=== PATIENT | female | born 1985 | race Caucasian/White ===

== ENCOUNTER → 2019-12-28 07:50 | Outpatient (BNVA) | payer MEDICAID, SELFPAY | PROVIDERS: PCP Family Medicine; Visit Provider Nurse Practitioner Psychiatric/Mental Health | DX: F90.2 Attention-deficit hyperactivity disorder, combined type (principal); F41.1 Generalized anxiety disorder; F33.41 Major depressive disorder, recurrent, in partial remission | CPT/HCPCS: 99212 ==

== ENCOUNTER → 2020-03-28 08:14 | Outpatient (BNVA) | payer MEDICAID, SELFPAY | PROVIDERS: PCP Family Medicine; Visit Provider Nurse Practitioner Psychiatric/Mental Health | DX: F90.2 Attention-deficit hyperactivity disorder, combined type (principal); F41.1 Generalized anxiety disorder; F33.42 Major depressive disorder, recurrent, in full remission | CPT/HCPCS: 99212 ==

== ENCOUNTER → 2020-04-05 13:36 | Outpatient (BNVA) | payer MEDICAID, SELFPAY | PROVIDERS: PCP Family Medicine; Visit Provider Nurse Practitioner Family | DX: Z11.59 Encounter for screening for other viral diseases (principal) | CPT/HCPCS: 87635 ==

== ENCOUNTER → 2020-06-20 08:10 | Outpatient (BNVA) | payer MEDICAID, SELFPAY | PROVIDERS: PCP Family Medicine; Visit Provider Nurse Practitioner Psychiatric/Mental Health | DX: F41.1 Generalized anxiety disorder (principal); F90.2 Attention-deficit hyperactivity disorder, combined type; F33.41 Major depressive disorder, recurrent, in partial remission | CPT/HCPCS: 99212 ==

== ENCOUNTER → 2020-08-17 08:42 | Outpatient (BNVA) | payer MEDICAID, SELFPAY | PROVIDERS: PCP Family Medicine; Visit Provider Nurse Practitioner Psychiatric/Mental Health | DX: F33.41 Major depressive disorder, recurrent, in partial remission (principal); F41.1 Generalized anxiety disorder; F90.2 Attention-deficit hyperactivity disorder, combined type | CPT/HCPCS: 99212 ==

== ENCOUNTER → 2020-11-20 07:39 | Outpatient (BNVA) | payer MEDICAID, SELFPAY | PROVIDERS: Visit Provider Nurse Practitioner Psychiatric/Mental Health | DX: F33.41 Major depressive disorder, recurrent, in partial remission (principal); F41.1 Generalized anxiety disorder; F90.2 Attention-deficit hyperactivity disorder, combined type | CPT/HCPCS: 99213 ==

== ENCOUNTER → 2021-01-03 16:00 | Outpatient (BNVA) | payer OTHER, MEDICAID, SELFPAY | PROVIDERS: Visit Provider Obstetrics & Gynecology | DX: R63.5 Abnormal weight gain (principal) | CPT/HCPCS: 84443 ==

== ENCOUNTER → 2021-01-22 10:29 | Outpatient (BNVA) | payer OTHER, MEDICAID, SELFPAY | PROVIDERS: Visit Provider Nurse Practitioner | DX: Z20.822 Contact with and (suspected) exposure to COVID-19 (principal) | CPT/HCPCS: 87635 ==

== ENCOUNTER → 2021-02-15 12:06 | Outpatient (BNVA) | payer OTHER, MEDICAID, SELFPAY | PROVIDERS: Visit Provider Nurse Practitioner Psychiatric/Mental Health | DX: F41.1 Generalized anxiety disorder (principal); F90.2 Attention-deficit hyperactivity disorder, combined type | CPT/HCPCS: 99213 ==

== ENCOUNTER → 2021-05-15 14:55 | Outpatient (BNVA) | payer OTHER, SELFPAY | PROVIDERS: Visit Provider Obstetrics & Gynecology | DX: R39.9 Unspecified symptoms and signs involving the genitourinary system (principal) | CPT/HCPCS: 81000 ==

== ENCOUNTER → 2021-08-15 09:01 | Outpatient (BNVA) | payer OTHER, SELFPAY | PROVIDERS: Visit Provider Obstetrics & Gynecology | DX: Z00.00 Encounter for general adult medical examination without abnormal findings (principal); E66.9 Obesity, unspecified | CPT/HCPCS: 80061; 82533; 82672 ==

== ENCOUNTER → 2021-11-09 14:08 | Outpatient (BNVA) | payer OTHER, SELFPAY | PROVIDERS: PCP Family Medicine; Visit Provider Family Medicine | DX: R53.83 Other fatigue (principal) | CPT/HCPCS: 80053; 84443; 85025 ==

== ENCOUNTER → 2021-11-15 08:44 | Outpatient (BNVA) | payer OTHER, SELFPAY | PROVIDERS: PCP Family Medicine; Visit Provider Family Medicine | DX: Z01.89 Encounter for other specified special examinations (principal); R53.83 Other fatigue | CPT/HCPCS: 83036; 85025 ==

== ENCOUNTER 2021-12-17 07:05 | Emergency (ER) | payer OTHER, MEDICAID, SELFPAY ==
--- NOTE | 2021-12-17 07:10 | W.ED.CHESTPA ---
HPI - Chest Pain General: Chief Complaint: Chest Pain Stated Complaint: chest pain/tightness in muscles Time Seen by Provider: 12/17/21 07:10 Source: patient Mode of arrival: ambulatory Limitations: no limitations History of Present Illness: 36-year-old female presents emergency room complaining of chest pain and discomfort describes as a tightness in the epigastric area radiating into the left lower chest and left upper quadrant. She is tachypneic on arrival here appears to be hyperventilating. She states her chest discomfort is worse with deep inspiration. She related is being associated with reflux disease she is taken doxylamine for abdominal cramping. She denies dysuria urgency or frequency no hematemesis coffee-ground emesis. She has had a previous hysterectomy. MD complaint: chest pain Onset (ago): day(s) Timing of current episode: episodic Prior episodes: Yes Onset: during rest Pain location: left chest and epigastric Severity: moderate Quality: sharp Relieving factors: rest Exacerbating factors: inspiration Associated symptoms: Reports abdominal pain, dyspnea and nausea; Deny diaphoresis, fever(s), leg edema, palpitations, sense of impending doom, syncope or vomiting Treatment prior to arrival: none Review of Systems Const: Denies: fever(s) or diaphoresis ENMT: Denies: throat pain, ear or mastoid pain, nasal discharge or nasal congestion Card: Denies: palpitations or syncope Resp: Reports: dyspnea GI: Reports: abdominal pain and nausea; Denies: vomiting : Denies: flank pain, difficulty voiding, dysuria, urinary frequency or urinary urgency Skin/Breast: Denies: rash or pruritus PFSH ED PFSH: Medical History ADHD (attention deficit hyperactivity disorder), combined type Diagnosed at the age of 16 and is on medication. She follows up with [facility]. No pertinent past medical history Denies diabetes, asthma, hypertension, seizures, DVT/PE PCP: None Surgical History S/P dilation and curettage Done 2008 for miscarriage. S/P hysterectomy March 2020--laparoscopic-assisted vaginal hysterectomy with bilateral salpingo-oophorectomy performed by Dr. Meza and [facility] for recurrent cervical dysplasia/endometriosis. --- Operative report reviewed and scanned into chart. Pathology showed [id number]-CHARLES-1 without high-grade dysplasia with margins free of dysplasia, proliferative endometrium without atypia hyperplasia or malignancy, benign myometrium serosa and bilateral ovaries. S/P laparoscopy X 3 (2009, 2011, 2013) 2009--Performed in [place]. Diagnosed with endometriosis at time of surgery Status post LEEP (loop electrosurgical excision procedure) of cervix States that she has had 2 LEEP procedures for abnormal Pap smear. States the time of hysterectomy there was no cancer or precancer Status post tubal ligation 2017-2 months laparoscopic tubal removal for sterilization Family History Grandfather Stroke paternal Mother Breast cancer Diagnosed in her late 40s Grandmother Breast cancer maternal, diagnosed in her 50s paternal, dianosed in her 60s Hypertension paternal Hyperlipidemia paternal Grandfather Colon cancer maternal, diagnosed in his 40s Family/Other Diabetes cousin Heart disease maternal uncle Denies family history of Ovarian cancer Uterine cancer Thyroid condition Physical Exam Const: GENERAL APPEARANCE: cooperative and comfortable ORIENTATION/CONSCIOUSNESS: Yes awake, Yes oriented to person, Yes oriented to place and Yes oriented to time HENMT: COMMON NORMALS: normocephalic, atraumatic and hearing grossly normal bilaterally HEAD & SCALP: normocephalic and atraumatic Neck/C-Spine: COMMON NORMALS: no JVD Resp: COMMON NORMALS: normal respiratory effort, No retractions, No use of accessory muscles and clear to auscultation bilaterally AUSCULTATION: clear to auscultation bilaterally Cardio: COMMON NORMALS: no JVD, regular rate, regular rhythm and No murmurs present (Cardio) RATE: regular rate RHYTHM: regular rhythm GI: COMMON NORMALS: No hepatosplenomegaly present AUSCULTATION: Yes normoactive bowel sounds PALPATION: Yes Tenderness to palpation present (GI) (Epigastric) Details: LUQ, No Guarding due to palpation present (GI) and Yes No hepatosplenomegaly present Extremity: COMMON NORMALS: normal to inspection, capillary refill normal, no clubbing, cyanosis or edema, no calf tenderness and no pedal edema Neuro: SENSORIUM/ORIENTATION: Yes oriented to person, Yes oriented to place and Yes oriented to time Skin: COMMON NORMALS: no rashes or lesions noted GENERAL SKIN EXAM: no rashes or lesions noted Course Vital Signs: Vital signs: Vital Signs Temperature 97.9 F 12/17/21 07:13 Pulse Rate 105 H 12/17/21 10:30 Respiratory Rate 20 H 12/17/21 10:30 Blood Pressure 107/66 12/17/21 10:30 Pulse Oximetry 95 12/17/21 10:30 MDM - Chest Pain Medical Decision Making CT of the chest and CT abdomen are negative. Patient was hyperventilating on arrival here most of her pain is worse with deep inspiration there is no evidence of pneumonia or any other pathology with known lung. Treat for pleuritic chest pain. Add been about to go and discussed the labs and findings with the patient and received a call regarding a critical test result with another patient. The discharge had already been printed unfortunately before I had the opportunity to go back and see the patient the nursing staff had discharged the patient they were not aware that I had not talked to her. I will have the charge nurse call her to make sure she does not have any questions. Medical Records I reviewed the patient's medical records. Lab Data I reviewed the patient's lab results. : 12/17/21 07:38 12/17/21 07:38 Radiology Impressions Chest X-Ray 12/17/21 07:11 IMPRESSION: No acute chest abnormality. Abdomen/Pelvis CT 12/17/21 07:34 IMPRESSION: 1. Mild diffuse fatty infiltration liver. 2. Normal renal parenchymal enhancement. No hydronephrosis. 3. No free fluid in the abdomen or pelvis. 4. No evidence of high-grade small or large bowel obstruction. 5. Normal appendix Chest CTA 12/17/21 08:59 IMPRESSION: 1. Proximal main pulmonary arteries are normal. Normal segmental and subsegmental pulmonary arteries. No evidence of pulmonary embolus. 2. No acute pulmonary infiltrates. No focal pneumonia or pleural fluid. 3. No mediastinal or hilar lymphadenopathy. 4. No other significant findings. Laboratory Results WBC 5.6 10^3/uL (4.0-10.0) 12/17/21 07:38 RBC 4.17 10^6/uL (4.1-5.3) 12/17/21 07:38 Hgb 13.2 g/dL (11.5-15.3) 12/17/21 07:38 Hct 38.8 % (37.0-47.0) 12/17/21 07:38 MCV 93.0 fl (81-99) 12/17/21 07:38 MCH 31.7 pg (28.0-34.0) 12/17/21 07:38 MCHC 34.0 g/dL (30.0-36.0) 12/17/21 07:38 RDW 12.7 % (12.1-15.1) 12/17/21 07:38 Plt Count 190 10^3/cmm (130-400) 12/17/21 07:38 MPV 9.5 fL (7.4-10.4) 12/17/21 07:38 Neut % (Auto) 75.6 % 12/17/21 07:38 Lymph % (Auto) 15.4 % 12/17/21 07:38 Frio % (Auto) 5.4 % 12/17/21 07:38 Eos % (Auto) 3.0 % 12/17/21 07:38 Baso % (Auto) 0.4 % 12/17/21 07:38 Neut # (Auto) 4.24 10^3/uL (1.8-7.7) 12/17/21 07:38 Lymph # (Auto) 0.9 10^3/uL (0.8-4.8) 12/17/21 07:38 Frio # (Auto) 0.3 10^3/uL (0.2-0.9) 12/17/21 07:38 Eos # (Auto) 0.2 10^3/uL (0.0-0.8) 12/17/21 07:38 Baso # (Auto) 0.0 10^3/uL (0.0-0.1) 12/17/21 07:38 Nucleated RBC % (auto) 0 % 12/17/21 07:38 Nucleated RBCs # 0.0 /100WBC 12/17/21 07:38 Specimen Type Arterial 12/17/21 07:41 Sample Site Radial, left 12/17/21 07:41 ABG pH 7.57 (7.35-7.45) H* 12/17/21 07:41 ABG pCO2 22.6 mmHg (35-45) L 12/17/21 07:41 ABG pO2 110.0 mmHg (80.0-100.0) H 12/17/21 07:41 ABG HCO3 20.5 mmol/L (22-26) L 12/17/21 07:41 ABG O2 Saturation 99.4 12/17/21 07:41 ABG Base Excess 0.1 mmol/L (-2.0-2.0) 12/17/21 07:41 Issac Test Pos 12/17/21 07:41 A-a O2 Gradient 1.2 mmHg (5-10) L 12/17/21 07:41 Hematocrit 40.9 % (37-47) 12/17/21 07:41 Hgb O2 Saturation 98.3 % (95-100) 12/17/21 07:41 Carboxyhemoglobin 0.5 %THgb (0.4-20.1) 12/17/21 07:41 Methemoglobin 0.5 % (0.4-1.5) 12/17/21 07:41 Total Hemoglobin 13.3 g/dL (12-16) 12/17/21 07:41 Sodium 140.0 mmol/L (131-143) 12/17/21 07:41 Potassium 3.8 mmol/L (3.5-5.0) 12/17/21 07:41 Glucose 100.0 mg/dL (70-115) 12/17/21 07:41 Ionized Calcium 1.1 mmol/L (1.1-1.4) 12/17/21 07:41 O2 Delivery Device Room air 12/17/21 07:41 Delivery Assistant ID Cak 12/17/21 07:41 Sodium 137 mmol/L (136-145) 12/17/21 07:38 Potassium 3.9 mmol/L (3.5-5.1) 12/17/21 07:38 Chloride 103 mmol/L (98-107) 12/17/21 07:38 Carbon Dioxide 20 mmol/L (22-29) L 12/17/21 07:38 Anion Gap 17.9 (5-19) 12/17/21 07:38 BUN 10 mg/dL (6-20) 12/17/21 07:38 Creatinine 0.6 mg/dL (0.5-0.9) 12/17/21 07:38 GFR Calculation 113.8 mL/min (90-130) 12/17/21 07:38 Glucose 100 mg/dL (65-115) 12/17/21 07:38 Calculated Osmolality 283 mOsm/kg (285-295) L 12/17/21 07:38 Calcium 9.4 mg/dL (8.5-10.5) 12/17/21 07:38 Lipase 26 U/L (13-60) 12/17/21 07:38 Discharge Plan Discharge Patient Disposition: Home Clinical Impression: Pleuritic chest pain, Hyperventilation Condition: Stable Prescriptions: New diclofenac sodium 75 mg tablet,delayed release (DR/EC) 75 mg PO Q12H PRN (Reason: pain) Qty: 20 0RF No Action Unisom (doxylamine) 25 mg tablet 25 mg PO .QHS 0RF trazodone 100 mg tablet 100 mg PO .qhs 0RF Rx Instructions: take1 tablet by mouth at least one hour before bedtime, if needed for insomnia zolpidem [Ambien CR] 12.5 mg tablet,ext release multiphase 12.5 mg PO .QHS 0RF Rx Instructions: take one daily tablet by mouth daily at bedtime, if needed for insomnia estradiol 1 mg tablet 1 mg PO DAILY Qty: 90 3RF acetaminophen [Tylenol] 325 mg capsule 325 mg PO QID PRN0RF famotidine 20 mg tablet 10 mg PO DAILY 0RF paroxetine HCl [Paxil] 40 mg tablet 40 mg PO DAILY Qty: 30 2RF Rx Instructions: take one tablet by mouth daily dextroamphetamine-amphetamine [Adderall XR] 30 mg capsule,extended release 24hr 30 mg PO QAM 30 Days Qty: 30 0RF Rx Instructions: Take one capsule by mouth every morning Victoza 2-Gopi 0.6 mg/0.1 mL (18 mg/3 mL) pen injector 0.6 mg SUBCUT DAILY Qty: 6 0RF Rx Instructions: Please dispense needle tips as well 340 B Discharge Orders: Discharge ED (Routine); Ordered 12/17/21 Ordered By: Karthik Suarez Referrals: Ximena Donald DO [Primary Care Provider] - Discharge Diet: Usual diet Discharge Activity: Increase activity as tolerated Patient Instructions: Opioid Safety Activity Restrictions/Additional Instructions: Follow-up with primary care if not improving Coding Level of Care Code ED [employer] for [facility] Fwd Exam Comprehensive
--- NOTE | 2021-12-17 07:11 | XR_ITS ---
WS: [id number] XR chest 1V portable [id number] REASON FOR EXAM: dyspnea/cough FINDINGS: The heart and mediastinum are within normal limits. Calcified granulomatous disease bilaterally. No acute pulmonary parenchymal or pleural abnormality. Elevation of the right hemidiaphragm with small eventration. Bony thorax intact without significant focal abnormality. XR/XR chest 1V portable [id number] IMPRESSION: No acute chest abnormality.
--- NOTE | 2021-12-17 07:11 | ECG_ITS ---
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 Measurements Intervals [place] Rate: 117 P: 42 NM: 184 QRS: 70 QRSD: 85 T: 54 QT: 315 QTc: 441 Interpretive Statements SINUS TACHYCARDIA ABNORMAL RHYTHM ECG No previous ECG available for comparison Electronically Signed On 12-18-2021 9:16:15 CDT by Curtis Mckeon M.D. [id number]
[2021-12-17 07:13] VITALS: PULSE 118; RESP 18; TEMP 36.6; O2SAT 98; BMI 37.1
--- NOTE | 2021-12-17 07:34 | CT_ITS ---
WS: [id number] CT ABDOMEN PELVIS TECHNIQUE: Contrast-enhanced CT of the abdomen and pelvis with coronal and sagittal reformatted image s. CLINICAL INFORMATION: abd pain COMPARISON: None. DLP: 2016.[address] scans at [facility] use at least one of these dose optimization techniques: automated e xposure control; mA and/or kV adjustment per patient size (includes targeted exams where dose is matc hed to clinical indication); or iterative reconstruction. FINDINGS: Lung bases are well aerated. Diffuse fatty infiltration liver. Normal portal vein and splenic vein. N ormal spleen. Normal GE junction. Normal pancreas. Adrenal glands are normal. Normal renal parenchyma enhancement. No hydronephrosis. Normal caliber abdominal aorta. Normal appendix in the RIGHT lower quadrant. No evidence of acute appendicitis. No free fluid in the abdomen or pelvis. No evidence of small or large bowel obstruction. Tiny fat-containing umbilical her bruno. Normal caliber abdominal aorta. Adrenal glands are normal. Normal renal parenchymal enhancement. No hydronephrosis. CT/CT abdomen pelvis w con* [id number] IMPRESSION: 1. Mild diffuse fatty infiltration liver. 2. Normal renal parenchymal enhancement. No hydronephrosis. 3. No free fluid in the abdomen or pelvis. 4. No evidence of high-grade small or large bowel obstruction. 5. Normal appendix
[2021-12-17] MEDS: lidocaine 2% viscous 15 ML, aluminum-mag hydrox-simethicon 30 ML, sucralfate oral liq 1 GM PO (07:43)
[2021-12-17 07:52] LABS: Basophils % 0.4 %; Eosinophils # 0.2 10^3/uL (0.0-0.8); Hematocrit 38.8 % (37.0-47.0); Hemoglobin 13.2 g/dL (11.5-15.3); Lymphocytes # 0.9 10^3/uL (0.8-4.8); Lymphocytes % 15.4 %; Mean Corpuscular Hemoglobin 31.7 pg (28.0-34.0); Mean Platelet Volume 9.5 fL (7.4-10.4); Monocytes # 0.3 10^3/uL (0.2-0.9); Monocytes % 5.4 %; Neutrophils # 4.24 10^3/uL (1.8-7.7); Neutrophils % 75.6 %; Nucleated Red Blood Cells % 0 %; Platelet Count 190 10^3/cmm (130-400); Red Blood Count 4.17 10^6/uL (4.1-5.3); Red Cell Distribution Width 12.7 % (12.1-15.1); White Blood Count 5.6 10^3/uL (4.0-10.0)
[2021-12-17 07:53] LABS: ABG PCO2 22.6 mmHg (35-45); ABG PH Result 7.57 (7.35-7.45); Alveolar-Arterial Oxygen Gradi 1.2 mmHg (5-10); Arterial Blood Gas Hematocrit 40.9 % (37-47); Base Excess ABG 0.1 mmol/L (-2.0-2.0); Blood Gas Allen Test Pos; Blood Gas Operator Identificat CAK; Blood Gas Sample Site Radial, left; Blood Gas Sample Type Arterial; Carboxyhemoglobin 0.5 %THgb (0.4-20.1); HCO3 ABG 20.5 mmol/L (22-26); HGB O2 Sat 98.3 % (95-100); Ionized Calcium Level - ABG 1.1 mmol/L (1.1-1.4); Methemoglobin 0.5 % (0.4-1.5); Oxygen Device ROOM AIR; Oxygen Saturation ABG 99.4; Potassium Level - ABG 3.8 mmol/L (3.5-5.0); Total Hemoglobin 13.3 g/dL (12-16)
[2021-12-17] MEDS: iohexol 300 mg/mL 100 mL Btl IV (08:06)
[2021-12-17 08:13] LABS: Anion Gap 17.9 (5-19); Blood Urea Nitrogen 10 mg/dL (6-20); Calcium 9.4 mg/dL (8.5-10.5); Carbon Dioxide 20 mmol/L (22-29); Chloride 103 mmol/L (98-107); Glomerular Filtration Rate 113.8 mL/min (90-130); Glucose 100 mg/dL (65-115); Lipase 26 U/L (13-60); Osmolality Calculated 283 mOsm/kg (285-295); Potassium 3.9 mmol/L (3.5-5.1); Sodium 137 mmol/L (136-145)
--- NOTE | 2021-12-17 08:59 | CT_ITS ---
WS: [id number] CTA OF THE CHEST WITH PULMONARY EMBOLISM PROTOCOL TECHNIQUE: High-resolution contrast enhanced CTA of the chest with coronal and sagittal reformatted i mages with pulmonary embolism protocol. MIP images are also reviewed. CLINICAL INFORMATION: chest pain COMPARISON: None. DLP: 536.[address] scans at [facility] use at least one of these dose optimization techniques: automated e xposure control; mA and/or kV adjustment per patient size (includes targeted exams where dose is matc hed to clinical indication); or iterative reconstruction. FINDINGS: Proximal main pulmonary arteries are normal. Normal segmental and subsegmental pulmonary arteries. No evidence of pulmonary embolus. No acute pulmonary infiltrates. No focal pneumonia or pleural fluid. No mediastinal or hilar lymphade nopathy. No axillary lymphadenopathy. Normal GE junction. Adrenal glands are normal. Mild diffuse fat ty infiltration of the liver. CT/CT angio chest PE protcl [id number] IMPRESSION: 1. Proximal main pulmonary arteries are normal. Normal segmental and subsegmen sonny pulmonary arteries. No evidence of pulmonary embolus. 2. No acute pulmonary infiltrates. No focal pneumonia or pleural fluid. 3. No mediastinal or hilar lymphadenopathy. 4. No other significant findings.
[2021-12-17] MEDS: iohexol 350 mg/mL 100 mL Btl IV (09:23)
[2021-12-17] MEDS: ketorolac 30 mg/mL INJ IVP (09:42)
[2021-12-17 09:45] VITALS: BP 122/74; PULSE 99; RESP 12; O2SAT 94
[2021-12-17 10:30] VITALS: BP 107/66; PULSE 105; RESP 20; O2SAT 95
== END 2021-12-17 10:40 | disposition home or self-care (01) ==
PROVIDERS: Emergency Provider Family Medicine; PCP Family Medicine
DX: R07.9 Chest pain, unspecified (principal); R06.4 Hyperventilation; Z79.890 Hormone replacement therapy
CPT/HCPCS: 36600; 71045; 71275; 74177; 80048; 80051; 82330; 82805; 83690; 85025; 93005; 96374; 99284; J1885; Q9967

== ENCOUNTER 2022-01-11 14:02 | Outpatient (CLI) | payer OTHER, MEDICAID, SELFPAY ==
--- NOTE | 2022-01-11 14:08 | MM_ITS ---
WS: [id number] BILATERAL 3D TOMOSYNTHESIS DIGITAL SCREENING MAMMOGRAPHY WITH CAD CLINICAL INFORMATION: Z12.39 - Encounter for other screening for malignant neop... HISTORY: Screening mammogram. No current complaints. COMPARISON: None. TECHNIQUE: Bilateral CC and MLO views. FINDINGS: Scattered fibroglandular densities bilaterally. No suspicious focal mass, asymmetry, calcifications, or architectural distortion. No evidence of malignancy. MM/[place] [id number] IMPRESSION: BI-RADS: 1-Negative FOLLOW UP: 1 Year Follow-up Recommend return to annual screening mammography.
== END 2022-01-11 14:03 | disposition home or self-care (01) ==
LOC: RAD 14:03
PROVIDERS: PCP Family Medicine; Visit Provider Obstetrics & Gynecology
DX: Z12.31 Encounter for screening mammogram for malignant neoplasm of breast (principal); Z80.3 Family history of malignant neoplasm of breast
CPT/HCPCS: 77063; 77067

== ENCOUNTER 2022-05-26 18:06 | Emergency (ER) | payer MEDICAID, SELFPAY ==
[2022-05-26 18:10] VITALS: BP 140/91; PULSE 99; RESP 18; TEMP 36.6; O2SAT 97; BMI 33.9
[2022-05-26 19:36] VITALS: BP 140/103; PULSE 91; RESP 18; O2SAT 99
--- NOTE | 2022-05-26 19:36 | PC.NURSE ---
assumed care of patient at this time.
[2022-05-26 19:45] LABS: Basophils % 0.4 %; Eosinophils # 0.1 10^3/uL (0.0-0.8); Eosinophils % 1.4 %; Hematocrit 41.7 % (37.0-47.0); Hemoglobin 14.2 g/dL (11.5-15.3); Lymphocytes % 31.5 %; Mean Corpuscular HGB Conc 34.1 g/dL (30.0-36.0); Mean Corpuscular Hemoglobin 31.6 pg (28.0-34.0); Mean Corpuscular Volume 92.7 fl (81-99); Mean Platelet Volume 9.3 fL (7.4-10.4); Monocytes # 0.6 10^3/uL (0.2-0.9); Monocytes % 6.6 %; Neutrophils # 5.73 10^3/uL (1.8-7.7); Neutrophils % 59.9 %; Nucleated Red Blood Cells % 0 %; Platelet Count 237 10^3/cmm (130-400); Red Cell Distribution Width 12.3 % (12.1-15.1); White Blood Count 9.6 10^3/uL (4.0-10.0)
[2022-05-26 19:52] LABS: Add Urine Microscopic? NO; Charge for UA Resulting for Rev
[2022-05-26 20:09] LABS: Alanine Aminotransferase 61 U/L (0-33); Albumin Level 4.8 g/dL (3.5-5.2); Alkaline Phosphatase 107 U/L (35-105); Anion Gap 16.6 (5-19); Aspartate Amino Transferase 48 U/L (0-32); Blood Urea Nitrogen 9 mg/dL (6-20); Calcium 9.2 mg/dL (8.5-10.5); Carbon Dioxide 26 mmol/L (22-29); Chloride 100 mmol/L (98-107); Creatinine Clr Calc Pharmacy 150.7744; Globulin 3.2 g/dL (1.3-4.6); Glomerular Filtration Rate 113.1 mL/min (90-130); Glucose 97 mg/dL (65-115); Lipase 22 U/L (13-60); Osmolality Calculated 287 mOsm/kg (285-295); Potassium 3.6 mmol/L (3.5-5.1); Sodium 139 mmol/L (136-145); Total Bilirubin 0.5 mg/dL (0.15-1.2)
[2022-05-26 20:11] LABS: Bilirubin Urine Neg (Negative); Blood Urine Neg (Negative); Glucose Urine UA Norm (Normal); Ketones Urine Negative (Negative); Leukocyte Esterase Urine Negative (Negative); Nitrate Urine Negative (Negative); Protein Urine Neg (Negative); Specific Gravity, Urine 1.025 (1.005-1.030); Urine Appearance SL Hazy (CLEAR); Urine Color Yellow (Yellow); Urobilinogen Urine Neg (Negative); pH Urine 5 (5-7)
--- NOTE | 2022-05-26 20:57 | W.ED.GENADLT ---
HPI - General Adult General: Chief complaint: Abdominal Pain Stated complaint: abd cramping, blood in stool Time Seen by Provider: 05/26/22 19:34 History of Present Illness: Patient is a 37-year-old female with a history of prior hysterectomy presenting to the emergency room for evaluation of bloody stool and diarrhea. Since yesterday night, patient has noticed increased liquid stool. Patient has had more than 7 episodes stool since yesterday night. Earlier this morning, patient noticed blood in her stool. In addition, patient complains of lower abdominal pain. He reports nausea without vomiting. Patient denies any fevers or chills. There is no other sick contact. Patient denies any recent antibiotic use. Patient denies any urinary complaints including vaginal discharge or bleeding. Patient has no prior history of renal colic. No other focal complaints of cyclic chest pain, shortness, palpitation, cough, runny nose or sore throat. Onset:yesterday night Duration:ongoing Location:home Severity:moderate Associated symptoms: Reports nausea; Deny chest pain, dyspnea, rash, palpitations or vomiting Review of Systems Const: Denies: fever(s) or chills Eyes: Denies: change in vision ENMT: Denies: mouth pain Card: Denies: chest pain or palpitations Resp: Denies: dyspnea or non-productive cough GI: Reports: abdominal pain (+lower ab dpain), nausea and diarrhea (+blood in stool); Denies: vomiting : Denies: dysuria Musc: Denies: extremity pain Skin/Breast: Denies: rash or new lesions Neuro: Denies: weakness in extremities Psych: Reports: other (Normal mood) Vinnie/Lymph: Denies: easy bruising PFS ED PFSH: Medical History ADHD (attention deficit hyperactivity disorder), combined type Diagnosed at the age of 16 and is on medication. She follows up with [facility]. No pertinent past medical history Denies diabetes, asthma, hypertension, seizures, DVT/PE PCP: None Surgical History S/P dilation and curettage Done 2008 for miscarriage. S/P hysterectomy March 2020--laparoscopic-assisted vaginal hysterectomy with bilateral salpingo-oophorectomy performed by Dr. Meza and [facility] for recurrent cervical dysplasia/endometriosis. --- Operative report reviewed and scanned into chart. Pathology showed LGSIL-CHARLES-1 without high-grade dysplasia with margins free of dysplasia, proliferative endometrium without atypia hyperplasia or malignancy, benign myometrium serosa and bilateral ovaries. S/P laparoscopy X 3 (2009, 2011, 2013) 2009--Performed in [place]. Diagnosed with endometriosis at time of surgery Status post LEEP (loop electrosurgical excision procedure) of cervix States that she has had 2 LEEP procedures for abnormal Pap smear. States the time of hysterectomy there was no cancer or precancer Status post tubal ligation 2017-2 months laparoscopic tubal removal for sterilization Family History Grandfather Stroke paternal Mother Breast cancer Diagnosed in her late 40s Grandmother Breast cancer maternal, diagnosed in her 50s paternal, dianosed in her 60s Hypertension paternal Hyperlipidemia paternal Grandfather Colon cancer maternal, diagnosed in his 40s Family/Other Diabetes cousin Heart disease maternal uncle Denies family history of Ovarian cancer Uterine cancer Thyroid condition Social History Smoking and tobacco status: never smoked Physical Exam Const: COMMON NORMALS: alert HENMT: COMMON NORMALS: atraumatic HEAD & SCALP: atraumatic MOUTH: moist mucous membranes not abnormal Eye: COMMON NORMALS: EOMs intact bilaterally and conjunctivae normal CONJUNCTIVA: Yes conjunctivae normal Neck/C-Spine: COMMON NORMALS: full ROM and supple Resp: COMMON NORMALS: normal respiratory effort and clear to auscultation bilaterally AUSCULTATION: clear to auscultation bilaterally Cardio: COMMON NORMALS: regular rate RATE: regular rate GI: COMMON NORMALS: Soft to palpation PALPATION: Yes Soft to palpation OTHER: +mild b/l TTP. NO guarding rebound, guarding, rigidity. No CVA tenderness to percussion. Neg Rinaldi/Neg McBurney's point tenderness, no suprabupic tenderness to palpation. Extremity: COMMON NORMALS: full ROM Neuro: SENSORIUM/ORIENTATION: Yes alert MOTOR EXAM: No Abnormal motor strength present and Other motor observations present (no focal motor deficits) Psych: COMMON NORMALS: speech normal SPEECH: Yes normal speech MOOD & AFFECT: Yes euthymic mood Course Vital Signs: Vital signs: Vital Signs Temperature 97.9 F 05/26/22 18:10 Pulse Rate 71 05/26/22 22:42 Respiratory Rate 19 H 05/26/22 22:42 Blood Pressure 140/103 05/26/22 19:36 Pulse Oximetry 98 05/26/22 22:42 Oxygen Delivery Me thod 05/26/22 21:26 MDM - General Adult Medical Decision Making 37F presenting to the ED presenting to the emergency room for evaluation of bloody stool and diarrhea with b/l le tenderness to palpation. Workup unremarkable. Likely bacterial causes of diarrhea. No suspicion for other acute intra-abdominal pathology including SBO, biliary pathology, appendicitis, diverticulitis, or other emergent condition requiring surgery. Rx ciprofloxacin for bloody stool, maalox/pepcid PRN dyspepsia, and zofran PRN nausea/vomiting Disposition: Discharge. Patient counseled regarding diagnostic impression, treatment plan. Patient given ED strict return precautions to return for continuation, worsening, or development of new symptoms. Instructed to f/u w/ PCP regarding symptoms today. Patient verbalized understanding. Lab Data : 05/26/22 19:36 05/26/22 19:36 Laboratory Results WBC 9.6 10^3/uL (4.0-10.0) 05/26/22 19:36 RBC 4.50 10^6/uL (4.1-5.3) 05/26/22 19:36 Hgb 14.2 g/dL (11.5-15.3) 05/26/22 19:36 Hct 41.7 % (37.0-47.0) 05/26/22 19:36 MCV 92.7 fl (81-99) 05/26/22 19:36 MCH 31.6 pg (28.0-34.0) 05/26/22 19:36 MCHC 34.1 g/dL (30.0-36.0) 05/26/22 19:36 RDW 12.3 % (12.1-15.1) 05/26/22 19:36 Plt Count 237 10^3/cmm (130-400) 05/26/22 19:36 MPV 9.3 fL (7.4-10.4) 05/26/22 19:36 Neut % (Auto) 59.9 % 05/26/22 19:36 Lymph % (Auto) 31.5 % 05/26/22 19:36 [place] % (Auto) 6.6 % 05/26/22 19:36 Eos % (Auto) 1.4 % 05/26/22 19:36 Baso % (Auto) 0.4 % 05/26/22 19:36 Neut # (Auto) 5.73 10^3/uL (1.8-7.7) 05/26/22 19:36 Lymph # (Auto) 3.0 10^3/uL (0.8-4.8) 05/26/22 19:36 [place] # (Auto) 0.6 10^3/uL (0.2-0.9) 05/26/22 19:36 Eos # (Auto) 0.1 10^3/uL (0.0-0.8) 05/26/22 19:36 Baso # (Auto) 0.0 10^3/uL (0.0-0.1) 05/26/22 19:36 Nucleated RBC % (auto) 0 % 05/26/22 19:36 Nucleated RBCs # 0.0 /100WBC 05/26/22 19:36 Sodium 139 mmol/L (136-145) 05/26/22 19:36 Potassium 3.6 mmol/L (3.5-5.1) 05/26/22 19:36 Chloride 100 mmol/L (98-107) 05/26/22 19:36 Carbon Dioxide 26 mmol/L (22-29) 05/26/22 19:36 Anion Gap 16.6 (5-19) 05/26/22 19:36 BUN 9 mg/dL (6-20) 05/26/22 19:36 Creatinine 0.6 mg/dL (0.5-0.9) 05/26/22 19:36 GFR Calculation 113.1 mL/min (90-130) 05/26/22 19:36 Glucose 97 mg/dL (65-115) 05/26/22 19:36 Calculated Osmolality 287 mOsm/kg (285-295) 05/26/22 19:36 Calcium 9.2 mg/dL (8.5-10.5) 05/26/22 19:36 Total Bilirubin 0.5 mg/dL (0.15-1.2) 05/26/22 19:36 AST 48 U/L (0-32) H 05/26/22 19:36 ALT 61 U/L (0-33) H 05/26/22 19:36 Alkaline Phosphatase 107 U/L (35-105) H 05/26/22 19:36 Total Protein 8.0 g/dL (6.6-8.7) 05/26/22 19:36 Albumin 4.8 g/dL (3.5-5.2) 05/26/22 19:36 Globulin 3.2 g/dL (1.3-4.6) 05/26/22 19:36 Lipase 22 U/L (13-60) 05/26/22 19:36 Urine Color Yellow (Yellow) 05/26/22 19:36 Urine Appearance Sl hazy (CLEAR) 05/26/22 19:36 Urine pH 5 (5-7) 05/26/22 19:36 Ur Specific [place] 1.025 (1.005-1.030) 05/26/22 19:36 Urine Protein Neg (Negative) 05/26/22 19:36 Urine Glucose (UA) Norm (Normal) 05/26/22 19:36 Urine Ketones Negative (Negative) 05/26/22 19:36 Urine Blood Neg (Negative) 05/26/22 19:36 Urine Nitrate Negative (Negative) 05/26/22 19:36 Urine Bilirubin Neg (Negative) 05/26/22 19:36 Urine Urobilinogen Neg mg/dL (Negative) 05/26/22 19:36 Ur Leukocyte Esterase Negative (Negative) 05/26/22 19:36 Urine HCG, Qual Negative (Negative) 05/26/22 19:36 Discharge Plan Discharge Patient Disposition: Home Clinical Impression: Bloody diarrhea, Abdominal pain Condition: Stable Prescriptions: New acetaminophen 500 mg tablet 500 mg PO Q6H PRN (Reason: pain) 5 Days Qty: 20 0RF Pepcid 20 mg tablet 20 mg PO BID PRN (Reason: abdominal pain) 10 Days Qty: 20 0RF Maalox Advanced 1,000-60 mg tablet,chewable 1 tab PO TID PRN (Reason: abdominal pain) 7 Days Qty: 21 0RF ciprofloxacin HCl 500 mg tablet 500 mg PO BID 7 Days Qty: 14 0RF No Action Unisom (doxylamine) 25 mg tablet 25 mg PO .QHS estradiol 1 mg tablet 1 mg PO DAILY Qty: 90 3RF Victoza 3-Gopi 0.6 mg/0.1 mL (18 mg/3 mL) pen injector 1.2 mg SUBCUT Q24H Qty: 9 1RF Rx Instructions: 340 B trazodone 100 mg tablet 100 mg PO .qhs Qty: 30 2RF Rx Instructions: take1 tablet by mouth at least one hour before bedtime, if needed for insomnia paroxetine HCl [Paxil] 40 mg tablet 40 mg PO DAILY Qty: 30 2RF Rx Instructions: take one tablet by mouth daily dextroamphetamine-amphetamine [Adderall XR] 30 mg capsule,extended release 24hr 30 mg PO QAM 30 Days Qty: 30 0RF Rx Instructions: Take one capsule by mouth every morning zolpidem [Ambien CR] 12.5 mg tablet,ext release multiphase 12.5 mg PO .QHS PRN (Reason: insomnia) Qty: 30 2RF Rx Instructions: take one daily tablet by mouth daily at bedtime, if needed for insomnia dextroamphetamine-amphetamine [Adderall XR] 30 mg capsule,extended release 24hr 30 mg PO QAM 30 Days Qty: 30 0RF Rx Instructions: Take one capsule by mouth every morning dextroamphetamine-amphetamine [Adderall XR] 30 mg capsule,extended release 24hr 30 mg PO QAM 30 Days Qty: 30 0RF Rx Instructions: Take one capsule by mouth every morning omeprazole 40 mg capsule,delayed release(DR/EC) 40 mg PO DAILY Qty: 90 3RF Discharge Orders: Discharge ED (Routine); Ordered 05/26/22 Ordered By: Flor Marie Referrals: Ximena Donald DO [Primary Care Provider] - Discharge Diet: Advance as tolerated Discharge Activity: Increase activity as tolerated Activity Restrictions/Additional Instructions: Please take your antibiotics as instructed. Watch out for signs of skin changes/redness, mouth redeness or swelling, nausea/vomiting, diarrhea, blood in the urine or any new or concering complaints. Please come back if you have any worsening abdominal pain, fever or chills, nausea or vomiting, diarrhea, blood in the stool, inability hold down liquid or solids, or any new concerning complaints. Coding Level of Care Code ED Powerhouse Mechanic for Romana Fwd Exam Comprehensive
--- NOTE | 2022-05-26 21:02 | PC.NURSE ---
patient attempting to give stool sample at this time.
[2022-05-26 21:26] VITALS: RESP 17; O2SAT 98
[2022-05-26] MEDS: acetaminophen 500 mg Tablet PO (21:26)
[2022-05-26] MEDS: lidocaine 2% viscous 15 ML, aluminum-mag hydrox-simethicon 30 ML, sucralfate oral liq 1 GM PO (21:26)
[2022-05-26] MEDS: sodium chloride 0.9% 1,000 ML 999 ML IV (21:26)
--- NOTE | 2022-05-26 21:26 | PC.NURSE ---
bright red, bloody,mucous containing stool sample taken to lab in sterile cup.
[2022-05-26 21:44] VITALS: RESP 19; O2SAT 99
[2022-05-26] MEDS: ciprofloxacin 400 MG/200 ML PREMIX 200 MG IV (21:44)
[2022-05-26] MEDS: morphine 4 mg/mL SDV 1 mL IVP ×2 (21:44→22:38)
[2022-05-26 22:38] VITALS: RESP 19
[2022-05-26 22:42] VITALS: PULSE 71; RESP 19; O2SAT 98
== END 2022-05-26 22:43 | disposition home or self-care (01) ==
PROVIDERS: Emergency Provider Emergency Medicine; PCP Family Medicine
DX: R10.9 Unspecified abdominal pain (principal); K92.1 Melena
CPT/HCPCS: 80053; 81003; 81025; 82274; 83630; 83690; 85025; 87493; 87506; 96365; 96375; 99285; J0744; J2270; J7030

== ENCOUNTER 2023-01-20 16:23 | Emergency (ER) | payer OTHER, MEDICAID, SELFPAY ==
[2023-01-20] VITALS (8 sets, daily range): BP systolic 143–163; BP diastolic 84–100; PULSE 79–99; RESP 16; TEMP 36.8; O2SAT 96–99; BMI 35.7
--- NOTE | 2023-01-20 16:42 | ECG_ITS ---
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 Measurements Intervals [place] Rate: 94 P: 139 ME: 163 QRS: 146 QRSD: 83 T: 142 QT: 357 QTc: 447 Interpretive Statements SINUS RHYTHM POSSIBLE RIGHT VENTRICULAR HYPERTROPHY [SOME/ALL OF: PROMINENT R IN V1, LATE TRANSITION, RAD, HAYDEE, SSS] No previous ECG available for comparison Electronically Signed On 01-20-2023 17:09:39 CDT by Curtis Mckeon M.D. [id number]
--- NOTE | 2023-01-20 17:40 | ED_ITS ---
HPI - Recheck/Abnormal Lab/Rx General: Chief Complaint: Recheck/Abnormal Lab/Rx Stated Complaint: High BP, hand cramping Time Seen by Provider: 01/20/23 17:40 History of Present Illness: 37-year-old female comes in today with concerns of high blood pressure, tingling in hands feet and face starting this morning. Patient holds her hands out with her fingers extended. Patient appears nontoxic. Patient has a history of anxiety, depression, obesity, ADHD, and insomnia. Review of Systems General: Reports: 10 or more systems reviewed and unremarkable except in HPI and below Const: Denies: fever(s) Eyes: Reports: change in vision ENMT: Denies: throat pain Card: Reports: chest pain (Described as pressure, 2 out of 10) Resp: Denies: dyspnea GI: Denies: nausea, vomiting or diarrhea : Denies: difficulty voiding Musc: Reports: other (Hand cramps) Skin/Breast: Denies: rash Neuro: Reports: numbness in extremities Psych: Reports: anxiety (No more than normal) and other (Drinks alcohol and uses marijuana occasionally, last use was Friday) PFSH ED PFSH: Medical History ADHD (attention deficit hyperactivity disorder), combined type Diagnosed at the age of 16 and is on medication. She follows up with [facility]. No pertinent past medical history Denies diabetes, asthma, hypertension, seizures, DVT/PE PCP: None Surgical History S/P dilation and curettage Done 2008 for miscarriage. S/P hysterectomy March 2020--laparoscopic-assisted vaginal hysterectomy with bilateral salpingo-oophorectomy performed by Dr. Meza and [facility] for recurrent cervical dysplasia/endometriosis. --- Operative report reviewed and scanned into chart. Pathology showed LGSIL-CHARLES-1 without high-grade dysplasia with margins free of dysplasia, proliferative endometrium without atypia hyperplasia or malignancy, benign myometrium serosa and bilateral ovaries. S/P laparoscopy X 3 (2009, 2011, 2013) 2009--Performed in [place]. Diagnosed with endometriosis at time of surgery Status post LEEP (loop electrosurgical excision procedure) of cervix States that she has had 2 LEEP procedures for abnormal Pap smear. States the time of hysterectomy there was no cancer or precancer Status post tubal ligation 2017-2 months laparoscopic tubal removal for sterilization Family History Grandfather Stroke paternal Mother Breast cancer Diagnosed in her late 40s Grandmother Breast cancer maternal, diagnosed in her 50s paternal, dianosed in her 60s Hypertension paternal Hyperlipidemia paternal Grandfather Colon cancer maternal, diagnosed in his 40s Family/Other Diabetes cousin Heart disease maternal uncle Denies family history of Ovarian cancer Uterine cancer Thyroid condition Social History Smoking and tobacco status: never smoked Second hand smoke exposure: No Smoking risk assessment/counseling performed?: No Alcohol intake: current Alcohol intake frequency: holidays/special occasions only Alcohol type: beer, wine, hard liquor and other Desire information about alcohol rehabilitation?: No Counseling given: No Substance/Drug Use: never Desire information about substance/drug rehabilitation?: No Counseling given: No Physical Exam Const: COMMON NORMALS: alert HENMT: COMMON NORMALS: normocephalic HEAD & SCALP: normocephalic Neck/C-Spine: COMMON NORMALS: full ROM Resp: COMMON NORMALS: normal respiratory effort and clear to auscultation bilaterally AUSCULTATION: clear to auscultation bilaterally Cardio: COMMON NORMALS: regular rate and regular rhythm RATE: regular rate RHYTHM: regular rhythm GI: COMMON NORMALS: Soft to palpation and non-tender PALPATION: Yes Soft to palpation Back/Pelvis: COMMON NORMALS: thoracic and lumbar spine normal to inspection Extremity: COMMON NORMALS: normal to inspection Neuro: SENSORIUM/ORIENTATION: Yes alert Skin: COMMON NORMALS: turgor normal GENERAL SKIN EXAM: turgor normal Course Vital Signs: Vital signs: Vital Signs Temperature 98.2 F 01/20/23 16:35 Pulse Rate 86 01/20/23 18:30 Respiratory Rate 16 01/20/23 16:35 Blood Pressure 143/94 01/20/23 18:30 Pulse Oximetry 98 01/20/23 18:30 Oxygen Delivery Me thod Room Air 01/20/23 16:35 MDM - Recheck/Abnormal Lab/Rx Medical Decision Making 37-year-old female comes in today with multiple symptoms including chest pressure, numbness in fingers and face, increasing anxiety. Patient reports no illness. Patient has a history of depression with anxiety. Patient also takes medications for obesity and insomnia. On exam respirations are even lungs are clear to auscultation heart rates regular. Vital signs are normal. Differential diagnosis includes but not limited to electrolyte imbalance, intracranial mass, anxiety, CHF, uncontrolled hypertension. Chest x-ray was normal. Head CT showed no intracranial abnormalities. CBC was unremarkable. CMP noted a decrease in potassium at 3.0, and magnesium at 1.6. Patient's blood pressure was 160 on arrival to the ER was treated with labetalol which brought it down to the 140s. We will continue patient on labetalol 50 mg twice a day and start her on potassium and magnesium routinely. Suspect patient's potassium magnesium may be offset by her diet to lose weight. Reviewed recommendations with a Dash diet for better hypertension control. Recommend follow-up with primary care for further instruction and evaluation. Patient reported understanding and agreed to plan. Patient was stable and released to home. Lab Data 01/20/23 18:00 01/20/23 18:00 Radiology Impressions Chest X-Ray 01/20/23 17:45 IMPRESSION: No acute findings. Head CT 01/20/23 17:45 IMPRESSION: No acute intracranial abnormality. Laboratory Results WBC 7.6 10^3/uL (4.0-10.0) 01/20/23 18:00 RBC 4.24 10^6/uL (4.1-5.3) 01/20/23 18:00 Hgb 12.9 g/dL (11.5-15.3) 01/20/23 18:00 Hct 37.7 % (37.0-47.0) 01/20/23 18:00 MCV 88.9 fl (81-99) 01/20/23 18:00 MCH 30.4 pg (28.0-34.0) 01/20/23 18:00 MCHC 34.2 g/dL (30.0-36.0) 01/20/23 18:00 RDW 12.8 % (12.1-15.1) 01/20/23 18:00 Plt Count 219 10^3/cmm (130-400) 01/20/23 18:00 MPV 9.3 fL (7.4-10.4) 01/20/23 18:00 Neut % (Auto) 54.0 % 01/20/23 18:00 Lymph % (Auto) 38.6 % 01/20/23 18:00 [place] % (Auto) 6.1 % 01/20/23 18:00 Eos % (Auto) 0.7 % 01/20/23 18:00 Baso % (Auto) 0.5 % 01/20/23 18:00 Neut # (Auto) 4.08 10^3/uL (1.8-7.7) 01/20/23 18:00 Lymph # (Auto) 2.9 10^3/uL (0.8-4.8) 01/20/23 18:00 [place] # (Auto) 0.5 10^3/uL (0.2-0.9) 01/20/23 18:00 Eos # (Auto) 0.1 10^3/uL (0.0-0.8) 01/20/23 18:00 Baso # (Auto) 0.0 10^3/uL (0.0-0.1) 01/20/23 18:00 Nucleated RBC % (auto) 0 % 01/20/23 18:00 Nucleated RBCs # 0.0 /100WBC 01/20/23 18:00 ESR 1 mm/hr (0-15) 01/20/23 18:00 Sodium 138 mmol/L (136-145) 01/20/23 18:00 Potassium 3.0 mmol/L (3.5-5.1) L 01/20/23 18:00 Chloride 96 mmol/L (98-107) L 01/20/23 18:00 Carbon Dioxide 27 mmol/L (22-29) 01/20/23 18:00 Anion Gap 18.0 (5-19) 01/20/23 18:00 BUN 8 mg/dL (6-20) 01/20/23 18:00 Creatinine 0.6 mg/dL (0.5-0.9) 01/20/23 18:00 GFR Calculation 113.1 mL/min (90-130) 01/20/23 18:00 Glucose 79 mg/dL (65-115) 01/20/23 18:00 Calculated Osmolality 283 mOsm/kg (285-295) L 01/20/23 18:00 Calcium 8.8 mg/dL (8.5-10.5) 01/20/23 18:00 Magnesium 1.6 mg/dL (1.7-2.3) L 01/20/23 18:00 Total Bilirubin 0.5 mg/dL (0.15-1.2) 01/20/23 18:00 AST 18 U/L (0-32) 01/20/23 18:00 ALT 23 U/L (0-33) 01/20/23 18:00 Alkaline Phosphatase 84 U/L (35-105) 01/20/23 18:00 Troponin T Gen 5 ng/L 6 ng/L (0-10) 01/20/23 18:00 C-Reactive Protein 3.0 mg/L (0.0-4.9) 01/20/23 18:00 NT-Pro-B Natriuret Pep 39 pg/mL (0-125) 01/20/23 18:00 Total Protein 8.3 g/dL (6.6-8.7) 01/20/23 18:00 Albumin 5.1 g/dL (3.5-5.2) 01/20/23 18:00 Globulin 3.2 g/dL (1.3-4.6) 01/20/23 18:00 HCG, Qual Negative (Negative) 01/20/23 18:00 Discharge Plan Discharge Patient Disposition: Home Clinical Impression: Hypomagnesemia, Hypokalemia Hypertension Qualifiers: Hypertension type: unspecified Qualified Code(s): I10 - Essential (primary) hypertension Condition: Stable Prescriptions: New magnesium oxide 400 mg magnesium tablet 400 mg PO DAILY Qty: 30 0RF potassium chloride 10 mEq capsule, extended release 10 meq PO DAILY Qty: 30 0RF labetalol 100 mg tablet 50 mg PO BID Qty: 30 0RF No Action Unisom (doxylamine) 25 mg tablet 25 mg PO .QHS omeprazole 40 mg capsule,delayed release(DR/EC) 40 mg PO DAILY Qty: 90 3RF dextroamphetamine-amphetamine [Adderall XR] 30 mg capsule,extended release 24hr 30 mg PO QAM 30 Days Qty: 30 0RF Rx Instructions: Take one capsule by mouth every morning trazodone 100 mg tablet 100 mg PO .qhs Qty: 30 2RF Rx Instructions: take1 tablet by mouth at least one hour before bedtime, if needed for insomnia paroxetine HCl [Paxil] 40 mg tablet 40 mg PO DAILY Qty: 30 2RF Rx Instructions: take one tablet by mouth daily dextroamphetamine-amphetamine 30 mg capsule,extended release 24hr 30 mg PO QAM 30 Days Qty: 30 0RF Rx Instructions: Take one capsule by mouth every morning dextroamphetamine-amphetamine 30 mg capsule,extended release 24hr 30 mg PO QAM 30 Days Qty: 30 0RF Rx Instructions: Take one capsule by mouth every morning dextroamphetamine-amphetamine 30 mg capsule,extended release 24hr 30 mg PO QAM 30 Days Qty: 30 0RF Rx Instructions: Take one capsule by mouth every morning Victoza 3-Gopi 0.6 mg/0.1 mL (18 mg/3 mL) pen injector See Rx Instructions .ROUTE .COMPLEX Qty: 9 2RF Dose Instruction: inject 1.8mg SUBCUTANEOUSLY every 24 hours FOR 30 DAYS Rx Instructions: inject 1.8mg SUBCUTANEOUSLY every 24 hours FOR 30 DAYS (DME) pen needle, diabetic [TechLITE Pen Needle] 32 gauge x 1/4 needle See Rx Instructions .Route Qty: 100 0RF Rx Instructions: As directed with victoza zolpidem 12.5 mg tablet,ext release multiphase 12.5 mg PO .qhs PRN (Reason: insomnia) Qty: 30 2RF estradiol 1 mg tablet See Rx Instructions .ROUTE .COMPLEX Qty: 90 0RF Dose Instruction: TAKE 1 TABLET BY MOUTH EVERY DAY Rx Instructions: TAKE 1 TABLET BY MOUTH EVERY DAY Discharge Orders: Discharge ED (Routine); Ordered 01/20/23 Ordered By: Kevin Medrano Referrals: Ximena Donald DO [Primary Care Provider] - Discharge Diet: Usual diet Discharge Activity: Increase activity as tolerated Patient Instructions: DASH Eating Plan (ED), Hypertension (ED) Activity Restrictions/Additional Instructions: Healthy diet and activity. Continue with labetalol 1/2 tablet twice a day until follow-up with primary care. Take potassium daily as prescribed. Take magnesium as prescribed. Have lab work rechecked in 1 week for further evaluation and treatment. Return to ED for new concerns. Coding Level of Care Code ED Document Review Specialist for Romana Solis
--- NOTE | 2023-01-20 17:45 | CTR_ITS ---
PROCEDURE INFORMATION: Exam: CT Head Without Contrast Exam date and time: 01/20/2023 6:08 PM Age: 37 years old Clinical indication: Dizziness; Additional info: Dizziness, high BP TECHNIQUE: Imaging protocol: Computed tomography of the head without contrast. Radiation optimization: All CT scans at this facility use at least one of these dose optimization techniques: automated exposure control; mA and/or kV adjustment per patient size (includes targeted exams where dose is matched to clinical indication); or iterative reconstruction. REPORTING DATA: Count of CT and Cardiac NM exams in prior 12 months: This patient has received 0 known CTs and 0 known cardiac nuclear medicine studies in the 12 months prior to the current study. COMPARISON: No relevant prior studies available. RADIATION DOSE METRICS: Total DLP (mGy-cm): 983 FINDINGS: Brain: Normal. No hemorrhage. Unremarkable white matter. No mass effect. Cerebral ventricles: No ventriculomegaly. Paranasal sinuses: Visualized sinuses are unremarkable. No fluid levels. Mastoid air cells: Visualized mastoid air cells are well aerated. Bones/joints: Unremarkable. No acute fracture. Soft tissues: Unremarkable. CT/CT head wo con* [id number] IMPRESSION: No acute intracranial abnormality.
--- NOTE | 2023-01-20 17:45 | XRR_ITS ---
PROCEDURE INFORMATION: Exam: XR Chest Exam date and time: 01/20/2023 5:50 PM Age: 37 years old Clinical indication: Pain; Chest pressure; Additional info: Chest discomfort, elevated BP TECHNIQUE: Imaging protocol: Radiologic exam of the chest. Views: 1 view. COMPARISON: CR XR chest 1V portable [id number] 12/17/2021 7:20 AM FINDINGS: Lungs: Unremarkable. No consolidation. Pleural spaces: Unremarkable. No pleural effusion. No pneumothorax. Heart/Mediastinum: Unremarkable. No cardiomegaly. Bones/joints: Unremarkable. XR/XR chest 1V portable [id number] IMPRESSION: No acute findings.
--- NOTE | 2023-01-20 17:48 | PC.NURSE ---
Pt hooked up to continuous bedside cardiac monitoring.
[2023-01-20] MEDS: LORazepam 0.5 mg Tablet PO (18:02)
[2023-01-20] MEDS: labetalol 5 mg/mL SDV 20mL 10 MG IVP (18:02)
[2023-01-20 18:19] LABS: Basophils % 0.5 %; Eosinophils # 0.1 10^3/uL (0.0-0.8); Eosinophils % 0.7 %; Hematocrit 37.7 % (37.0-47.0); Hemoglobin 12.9 g/dL (11.5-15.3); Lymphocytes # 2.9 10^3/uL (0.8-4.8); Lymphocytes % 38.6 %; Mean Corpuscular HGB Conc 34.2 g/dL (30.0-36.0); Mean Corpuscular Hemoglobin 30.4 pg (28.0-34.0); Mean Corpuscular Volume 88.9 fl (81-99); Mean Platelet Volume 9.3 fL (7.4-10.4); Monocytes # 0.5 10^3/uL (0.2-0.9); Monocytes % 6.1 %; Neutrophils # 4.08 10^3/uL (1.8-7.7); Nucleated Red Blood Cells % 0 %; Platelet Count 219 10^3/cmm (130-400); Red Blood Count 4.24 10^6/uL (4.1-5.3); Red Cell Distribution Width 12.8 % (12.1-15.1); White Blood Count 7.6 10^3/uL (4.0-10.0)
[2023-01-20 18:23] LABS: Erythrocyte Sedimentation Rate 1 mm/hr (0-15)
[2023-01-20 18:32] LABS: HCG, Serum Qual Negative (Negative)
[2023-01-20 18:39] LABS: Troponin T (5th) Once 6 ng/L (0-10)
[2023-01-20 18:48] LABS: Alanine Aminotransferase 23 U/L (0-33); Albumin Level 5.1 g/dL (3.5-5.2); Alkaline Phosphatase 84 U/L (35-105); Aspartate Amino Transferase 18 U/L (0-32); Blood Urea Nitrogen 8 mg/dL (6-20); Calcium 8.8 mg/dL (8.5-10.5); Carbon Dioxide 27 mmol/L (22-29); Chloride 96 mmol/L (98-107); Creatinine Clr Calc Pharmacy 149.8069; Globulin 3.2 g/dL (1.3-4.6); Glomerular Filtration Rate 113.1 mL/min (90-130); Glucose 79 mg/dL (65-115); Magnesium 1.6 mg/dL (1.7-2.3); NT Pro B Type Natriuretic Pept 39 pg/mL (0-125); Osmolality Calculated 283 mOsm/kg (285-295); Sodium 138 mmol/L (136-145); Total Bilirubin 0.5 mg/dL (0.15-1.2); Total Protein 8.3 g/dL (6.6-8.7)
[2023-01-20] MEDS: magnesium oxide 400 mg tablet PO (19:19)
[2023-01-20] MEDS: potassium chloride ER 20 mEq Tablet 40 MEQ PO (19:19)
[2023-01-20] MEDS: labetalol 200 mg Tablet 50 MG PO (19:31)
== END 2023-01-20 19:42 | disposition home or self-care (01) ==
PROVIDERS: Emergency Provider Nurse Practitioner Family; PCP Family Medicine
DX: I10 Essential (primary) hypertension (principal); E87.6 Hypokalemia; E83.42 Hypomagnesemia
CPT/HCPCS: 36415; 70450; 71045; 80053; 83735; 83880; 84484; 84703; 85025; 85651; 86140; 93005; 96374; 99285; J3490

== ENCOUNTER → 2023-01-28 16:33 | Outpatient (BNVA) | payer MEDICAID, SELFPAY | PROVIDERS: PCP Family Medicine; Visit Provider Family Medicine | DX: I10 Essential (primary) hypertension (principal); E83.42 Hypomagnesemia; E87.6 Hypokalemia | CPT/HCPCS: 80053; 83735; 84443; 85025 ==

== ENCOUNTER → 2023-04-29 10:09 | Outpatient (BNVA) | payer MEDICAID, SELFPAY | PROVIDERS: PCP Family Medicine; Visit Provider Nurse Practitioner | DX: R50.9 Fever, unspecified (principal); J01.90 Acute sinusitis, unspecified; J32.9 Chronic sinusitis, unspecified | CPT/HCPCS: 87426 ==

== ENCOUNTER → 2023-12-19 09:42 | Outpatient (BNVA) | payer MEDICAID, SELFPAY | PROVIDERS: PCP Family Medicine; Visit Provider Family Medicine | DX: Z79.890 Hormone replacement therapy (principal); Z13.6 Encounter for screening for cardiovascular disorders | CPT/HCPCS: 80053; 80061; 83721; 84443; 85025 ==

== ENCOUNTER 2023-12-23 09:00 | Outpatient (CLI) | payer MEDICAID, SELFPAY ==
--- NOTE | 2023-12-23 09:30 | MM_ITS ---
WS: [id number] BILATERAL 3D TOMOSYNTHESIS DIGITAL SCREENING MAMMOGRAPHY WITH CAD CLINICAL INFORMATION: screening / family history HISTORY: Screening mammogram. No current complaints. COMPARISON: 2021 TECHNIQUE: Bilateral CC and MLO views. FINDINGS: Scattered fibroglandular densities bilaterally. Increasing ovoid focal asymmetric density near the 12 o'clock position RIGHT breast may represent intramammary lymph node but indeterminate. Recommend ult rasound of this area. LEFT breast is unchanged and unremarkable. IMPRESSION: MM/[place] [id number] BI-RADS: 0-Incomplete: Need additional imaging evaluation FOLLOW UP: Need Additional Imaging Recommend ultrasound RIGHT breast at the 12 o'clock position.
== END 2023-12-23 09:01 | disposition home or self-care (01) ==
LOC: RAD 09:01
PROVIDERS: PCP Family Medicine; Visit Provider Family Medicine
DX: Z12.31 Encounter for screening mammogram for malignant neoplasm of breast (principal); R92.323 Mammographic fibroglandular density, bilateral breasts
CPT/HCPCS: 77063; 77067

== ENCOUNTER 2024-01-19 12:43 | Outpatient (CLI) | payer MEDICAID, SELFPAY ==
--- NOTE | 2024-01-19 13:00 | US_ITS ---
WS: [id number] ULTRASOUND BREAST RIGHT TECHNIQUE: Ultrasound right breast focused area of concern. CLINICAL INFORMATION: Abnormal mammogram COMPARISON: Mammogram 12/23/2023 FINDINGS: Ultrasound RIGHT breast 10 to 2 o'clock position anteriorly. At the 10:00 position deep to the [place] there is a hypoechoic taller than wide solid appearing lesion measuring 1.1 x 1.2 x 1.7 cm. This is indeterminate and has a suspicious appearance. Recommend further evaluation with ultrasound-guided bi opsy. US/[place] complete [id number] IMPRESSION: BI-RADS 4 suspicious Recommend ultrasound-guided biopsy of the 10:00 lesion.
== END 2024-01-19 12:44 | disposition home or self-care (01) ==
LOC: RAD 12:43
PROVIDERS: PCP Family Medicine; Visit Provider Family Medicine
DX: R92.8 Other abnormal and inconclusive findings on diagnostic imaging of breast (principal); N63.11 Unspecified lump in the right breast, upper outer quadrant; N63.41 Unspecified lump in right breast, subareolar
CPT/HCPCS: 76641

== ENCOUNTER 2024-01-28 12:04 | Outpatient (CLI) | payer MEDICAID, SELFPAY ==
--- NOTE | 2024-01-28 13:15 | US_ITS ---
WS: [id number] ULTRASOUND-GUIDED RIGHT BREAST BIOPSY HISTORY: Mass in right Breast COMPARISON: 01/19/2024 and 12/23/2023 Procedure, risks and complications are explained to the patient. Medications are reviewed. Consent is obtained. The mass in the RIGHT breast is localized with ultrasound. Mass localizes to 10:00, 10 cm from the ni pple. Skin is cleansed with ChloraPrep and anesthetized with 1% buffered lidocaine. Small dermatome i s made. Under sterile conditions mass is biopsied with a 14-gauge Achieve needle. Multiple core biops ies are performed. Material placed in formalin and sent to pathology for review. No complications enc ountered. Breast tissue marker (Bard ultrasound enhanced ribbon): Single. Patient left the radiology suite with no complications. Patient is instructed to return to [facility] or [facility] with any concerns. US/[place] [id number] IMPRESSION: 1. Uncomplicated core needle biopsy RIGHT breast biopsy at 10:00. PATHOLOGY: Minimal breast tissue with focal fibrocystic disease. Changes sugges tive of pseudoepitheliomatous hyperplasia. RECOMMENDATION: Follow-up mammogram and ultrasound 6 months. BI-RADS 3. Recommend follow-up RIGHT mammogram and ultrasound in 6 months.
== END 2024-01-28 12:05 | disposition home or self-care (01) ==
LOC: RAD 12:04
PROVIDERS: PCP Family Medicine; Visit Provider Family Medicine
DX: D24.1 Benign neoplasm of right breast (principal); N60.11 Diffuse cystic mastopathy of right breast
CPT/HCPCS: 19083; 88305

== ENCOUNTER → 2025-02-28 13:38 | Outpatient (BNVA) | payer BC, MEDICAID, SELFPAY | DX: K21.9 Gastro-esophageal reflux disease without esophagitis (principal) | CPT/HCPCS: 80053; 80061; 83721 ==